=== PATIENT | female | born 1965 | race Asian ===

== ENCOUNTER → 2023-11-13 16:24 | Outpatient (REF) | payer OTHER, SELFPAY | LOC: CLINIC 16:24 | PROVIDERS: ATTENDING PHYSICIAN Nurse Practitioner Acute Care | DX: A31.9 Mycobacterial infection, unspecified (principal) | CPT/HCPCS: 71046 ==

== ENCOUNTER → 2023-11-19 10:36 | Outpatient (REF) | payer OTHER, SELFPAY ==
[2023-11-19 12:07] LABS: Urine Albumin Negative (Neg - Trace); Urine Bilirubin Negative (Negative); Urine Character Clear (Clear); Urine Color Yellow; Urine Glucose Negative (Negative); Urine Ketone Negative (Negative); Urine Leukocyte Trace (Negative); Urine Nitrite Negative (Negative); Urine Occult Blood 1+ (Negative); Urine Specific Gravity 1.015 (<1.030); Urine Urobilinogen Negative (Neg - 1+)
[2023-11-19 12:46] LABS: ALT (SGPT) 56 U/L (0-35); AST (SGOT) 52 U/L (14-36); Albumin 4.9 g/dl (3.5-5.0); Alkaline Phosphatase 100 U/L (38-126); Blood Urea Nitrogen 16 mg/dl (7-17); Calcium 9.4 mg/dl (8.4-10.2); Carbon Dioxide 31 mmol/L (22-30); Chloride 103 mmol/L (98-107); GGTP 70 U/L (12-43); Glucose 89 mg/dl (70-99); HDL Cholesterol 107 mg/dl; LDL Cholesterol, Calculated 82 mg/dl; Sodium 141 mmol/L (135-145); Total Bilirubin 0.7 mg/dl (0.2-1.3); Total Cholesterol 208 mg/dl (50-199); Total Protein 7.7 g/dl (6.3-8.2); Triglyceride 99 mg/dl (10-149); Very Low Density Lipoprotein 19 mg/dl (0-30); eGFR > 60.00
[2023-11-19 12:52] LABS: % Basophils 0.6 % (0-2); % Eosinophils 1.6 % (0-6); % Immature Granulocytes 0.2 % (0-0.5); % Lymphocytes 48.1 % (20.5-51.1); % Monocytes 9.1 % (1.7-9.3); % Neutrophils 40.4 % (42.2-75.2); Absolute Eosinophils 0.1 10^3/uL (0-0.7); Absolute Lymphocytes 2.4 10^3/uL (1.2-3.4); Absolute Monocytes 0.5 10^3/uL (0.1-0.6); Hematocrit 35.9 % (37.0-47.0); Hemoglobin 11.6 g/dL (12.0-16.0); Mean Corp Hgb Conc. 32.3 g/dL (33.0-37.0); Mean Corpuscular Hgb 28.5 pg (27.0-31.0); Mean Corpuscular Volume 88.2 fL (81.0-99.0); Mean Platelet Volume 11.5 fL (7.4-10.4); Nucleated Red Blood Cells % 0 %; Platelet Count 208 10^3/uL (130-400); Red Blood Cell Count 4.07 10^6/uL (4.20-5.40); Red Cell Dist. Width 14.3 % (11.5-14.5)
[2023-11-19 13:07] LABS: Vitamin D, 25-OH*** 38.4 ng/mL (30-80)
[2023-11-19 13:20] LABS: TSH Reflex To Free T4 1.22 uIU/ml (0.47-4.68)
[2023-11-19 14:10] LABS: Glycohemoglobin (HgbA1c) 5.4 % (4.0-5.6)
[2023-11-19 14:47] LABS: Urine Mucus Many
[2023-11-19 14:48] LABS: Urine Amorphous Seen
[2023-11-19 14:49] LABS: Urine White Cell 0-2 /HPF (0-5)
[2023-11-20 19:21] LABS: Hepatitis B Surface Antigen Negative (Negative)
[2023-11-20 19:38] LABS: Hepatitis C Antibody Negative (Negative)
== END ==
LOC: CLINIC 10:36
PROVIDERS: ATTENDING PHYSICIAN Nurse Practitioner Acute Care
DX: Z00.00 Encounter for general adult medical examination without abnormal findings (principal)
CPT/HCPCS: 36415; 80053; 80061; 81003; 81015; 82306; 82977; 83036; 84443; 85025; 86803; 87340

== ENCOUNTER → 2023-12-10 13:45 | Outpatient (REF) | payer OTHER, SELFPAY ==
[2023-12-10 16:51] LABS: Urine Albumin Negative (Neg - Trace); Urine Bilirubin Negative (Negative); Urine Character Clear (Clear); Urine Color Yellow; Urine Glucose Negative (Negative); Urine Ketone Negative (Negative); Urine Leukocyte Negative (Negative); Urine Nitrite Negative (Negative); Urine Occult Blood Negative (Negative); Urine Specific Gravity 1.015 (<1.030); Urine Urobilinogen Negative (Neg - 1+)
[2023-12-10 17:18] LABS: Urine Red Blood Cell 0-2 /HPF (0-2); Urine White Cell 0-2 /HPF (0-5)
== END ==
LOC: REG 13:45
PROVIDERS: ATTENDING PHYSICIAN Nurse Practitioner Acute Care
DX: R31.9 Hematuria, unspecified (principal)
CPT/HCPCS: 36415; 81003; 81015

== ENCOUNTER → 2023-12-19 15:32 | Outpatient (REF) | payer OTHER, SELFPAY | LOC: WDC 15:32 | PROVIDERS: ATTENDING PHYSICIAN Nurse Practitioner Acute Care | DX: Z12.31 Encounter for screening mammogram for malignant neoplasm of breast (principal) | CPT/HCPCS: 77063; 77067 ==

== ENCOUNTER → 2023-12-30 07:55 | Outpatient (REF) | payer OTHER, SELFPAY | LOC: HWRAD 07:55 | PROVIDERS: ATTENDING PHYSICIAN Nurse Practitioner Acute Care; FAMILY PHYSICIAN Nurse Practitioner Adult Health | DX: R79.89 Other specified abnormal findings of blood chemistry (principal) | CPT/HCPCS: 76700 ==

== ENCOUNTER → 2024-05-17 07:59 | Outpatient (REF) | payer OTHER, SELFPAY ==
[2024-05-17 10:31] LABS: ALT (SGPT) 20 U/L (0-35); AST (SGOT) 33 U/L (14-36); Albumin 4.6 g/dl (3.5-5.0); Alkaline Phosphatase 70 U/L (38-126); Blood Urea Nitrogen 16 mg/dl (7-17); Calcium 9.2 mg/dl (8.4-10.2); Carbon Dioxide 30 mmol/L (22-30); Chloride 100 mmol/L (98-107); Glucose 86 mg/dl (70-99); Potassium 4.1 mmol/L (3.5-5.1); Sodium 141 mmol/L (135-145); Total Bilirubin 0.5 mg/dl (0.2-1.3); Total Protein 7.4 g/dl (6.3-8.2); eGFR > 60.00
[2024-05-17 19:32] LABS: Hepatitis B Core Ab, Total Reactive (Negative)
== END ==
LOC: CLINIC 07:59
PROVIDERS: ATTENDING PHYSICIAN Nurse Practitioner Adult Health
DX: R74.8 Abnormal levels of other serum enzymes (principal)
CPT/HCPCS: 36415; 80053; 86704

== ENCOUNTER → 2024-05-28 08:00 | Outpatient (REF) | payer OTHER, SELFPAY ==
[2024-05-28 09:24] LABS: Hepatitis B Surface Antigen Negative (Negative)
[2024-05-28 09:43] LABS: Hepatitis B Core Ab, Total Reactive (Negative); Hepatitis B Surface Antibody Positive
[2024-05-28 15:45] LABS: Hepatitis B Core Ab, IgM Negative (Negative)
== END ==
LOC: REG 08:00
PROVIDERS: ATTENDING PHYSICIAN Nurse Practitioner Adult Health
DX: R74.8 Abnormal levels of other serum enzymes (principal); Z11.59 Encounter for screening for other viral diseases
CPT/HCPCS: 36415; 86704; 86705; 86706; 87340

== ENCOUNTER → 2025-04-11 09:14 | Outpatient (REF) | payer OTHER, SELFPAY ==
[2025-04-11 11:27] LABS: Hematocrit 38.7 % (37.0-47.0); Hemoglobin 12.2 g/dL (12.0-16.0); Mean Corp Hgb Conc. 31.5 g/dL (33.0-37.0); Mean Corpuscular Volume 92.1 fL (81.0-99.0); Platelet Count 198 10^3/uL (130-400); Red Cell Dist. Width 13.2 % (11.5-14.5)
[2025-04-11 12:25] LABS: ALT (SGPT) 24 U/L (0-35); AST (SGOT) 31 U/L (14-36); Albumin 4.6 g/dl (3.5-5.0); Alkaline Phosphatase 66 U/L (38-126); Blood Urea Nitrogen 15 mg/dl (7-17); Calcium 9.2 mg/dl (8.4-10.2); Carbon Dioxide 29 mmol/L (22-30); Chloride 105 mmol/L (98-107); Glucose 84 mg/dl (70-99); HDL Cholesterol 92 mg/dl; LDL Cholesterol, Calculated 96 mg/dl; Potassium 4.0 mmol/L (3.5-5.1); Sodium 139 mmol/L (135-145); Total Protein 7.8 g/dl (6.3-8.2); Very Low Density Lipoprotein 14 mg/dl (0-30); eGFR > 60.00
[2025-04-11 12:28] LABS: Vitamin D, 25-OH*** 46.9 ng/mL (30-80)
== END ==
LOC: CLINIC 09:14
PROVIDERS: ATTENDING PHYSICIAN Nurse Practitioner Adult Health
DX: Z00.00 Encounter for general adult medical examination without abnormal findings (principal)
CPT/HCPCS: 36415; 80053; 80061; 82306; 84443; 85027

== ENCOUNTER → 2025-05-02 14:37 | Outpatient (REF) | payer OTHER, SELFPAY | LOC: WDC 14:37 | PROVIDERS: ATTENDING PHYSICIAN Nurse Practitioner Adult Health | DX: Z12.31 Encounter for screening mammogram for malignant neoplasm of breast (principal) | CPT/HCPCS: 77063; 77067 ==